=== PATIENT | male | born 1970 | race Two or more races ===

== ENCOUNTER 2018-03-24 12:02 | Emergency (ER) | payer SELFPAY ==
[~2018-03-24] VITALS: Ht 167.6 cm; Wt 68.0 kg
[2018-03-24 12:03] VITALS: BP 142/92
[2018-03-24] MEDS ORDERED: Lansoprazole 15mg cap ORAL SCH (12:30)
--- NOTE | 2018-03-24 12:33 | Emergency Room Report ---
History of Present Illness General Chief Complaint: Alcohol Intoxication Source: Patient Present Illness HPI 48-year-old male presents to the emergency department having no medical complaints at this time. Patient denies pain. Patient was brought to the emergency department by EMS. According to EMS bystanders called 911. Patient denies trauma or fall. He reports drinking alcohol this morning he states he has a problem. Patient denies nausea, vomiting, abdominal pain or tenderness. Patient denies neck pain. He denies open wounds or bleeding Denies CP, Palpitations, LOC, AMS, dizziness, Changes in Vision, Sensation, paresthesias, or a sudden severe headache. Allergies: Coded Allergies: No Known Allergies (Unverified , 03/24/18) Patient History Past Medical History: see triage record Past Surgical History: none Pertinent Family History: none Social History: Reports: alcohol use Reviewed Nursing Documentation: PMH: Agreed; PSxH: Agreed Nursing Documentation-PMH Past Medical History: No Stated History Review of Systems All Other Systems: negative except mentioned in HPI Physical Exam Vital Signs Date Time Temp Pulse Resp B/P (MAP) Pulse Ox O2 Delivery O2 Flow Rate FiO2 03/24/18 11:57 98.0 100 18 142/92 95 Room Air 98.1 Sp02 EP Interpretation: reviewed, normal General Appearance: no apparent distress, alert, GCS 15, non-toxic, other - Disheveled Head: normocephalic, atraumatic Eyes: bilateral eye normal inspection, bilateral eye PERRL, bilateral eye EOMI ENT: hearing grossly normal, normal voice Neck: full range of motion, no bony tend Respiratory: chest non-tender, lungs clear, normal breath sounds, speaking full sentences Cardiovascular #1: regular rate, rhythm Gastrointestinal: normal bowel sounds, non tender, soft, non-distended, no guarding Musculoskeletal: back normal, gait/station normal, normal range of motion, non- tender Neurologic: alert, oriented x3, responsive, motor strength/tone normal, sensory intact, speech normal - mild slurr, grossly normal Psychiatric: judgement/insight normal, mood/affect normal Skin: normal color, no rash, warm/dry, well hydrated, other - no open wounds, no abrasions Lymphatic: no adenopathy Medical Decision Making PA Attestation Dr. Fried is my supervising Physician whom patient management has been discussed with. Diagnostic Impression: Primary Impression: Acute alcoholic intoxication Qualified Codes: F10.929 - Alcohol use, unspecified with intoxication, unspecified ER Course Pt. presents to the ED intoxicated with alcohol, pt. is NAD, pt. is alert, no obvious signs of trauma. after a few hours pt. c/o stomach ache Ddx considered but are not limited to ETOH, Trauma, Syncope, dementia, OD Pt. Well known to the ED, this is not his correct name. I attended to him within the last week. Vital signs: are WNL, pt. is afebrile H&PE are most consistent with ETOH abuse. ORDERS: none required at this time ED INTERVENTIONS: -GI meds PO -Observance while he detoxifies. -Pt. was allowed to sleep/rest. - PT. became awake and alert x 3 He states he would like to leave. pt. is ambulatory, keeping food down. DISCHARGE: At this time pt. is stable for d/c to home. Will provide printed patient care instructions, and any necessary prescriptions. Care plan and follow up instructions have been discussed with the patient prior to discharge. Last Vital Signs Date Time Temp Pulse Resp B/P (MAP) Pulse Ox O2 Delivery O2 Flow Rate FiO2 03/24/18 11:57 98.0 100 18 142/92 95 Room Air 98.1 Disposition: HOME, SELF-CARE Condition: Stable Patient Instructions: Alcohol Intoxication, [id number] Additional Instructions: Take medications as directed. Stop Drinking ALCOHOL Follow up with a Primary Care Provider in 3-5 days, even if your symptoms have resolved. --Please review list of primary care clinics, if you do not already have a primary care provider Return sooner to ED if new symptoms occur, or current symptoms become worse. - Please note that this Emergency Department Report was dictated using [employer] Sol[employer]lass[employer] engraver technology software, occasionally this can lead to erroneous entry secondary to interpretation by the dictation equipment. Jaylene Schwartz March 24, 2018 12:33
[2018-03-24 15:05] VITALS: BP 134/84
[2018-03-24 15:50] VITALS: BP 134/84
== END 2018-03-24 15:54 | disposition home or self-care (01) ==
LOC: EDBD 12:02 → EMR 12:42
DX: F10.129 Alcohol abuse with intoxication, unspecified (principal)
CPT/HCPCS: 99283

== ENCOUNTER 2018-04-07 13:55 | Emergency (ER) | payer SELFPAY ==
[~2018-04-07] VITALS: Ht 167.6 cm; Wt 77.1 kg
--- NOTE | 2018-04-07 14:13 | Emergency Room Report ---
History of Present Illness General Chief Complaint: Alcohol Intoxication Source: EMS Present Illness HPI 48-year-old male presents emergency department brought by ambulance after bystander called 911. Patient is alert he is not oriented at this time. Patient reports he drank 2 x 40 ounces of beer today. He reports abdominal pain , and left-sided flank pain. Denies dysuria, hematuria, nausea, vomiting, fevers or chills. He denies trauma or fall. History of present illness and ROS is limited due to short attention span of patient as well as patient being clinically inebriated. Allergies: Coded Allergies: No Known Allergies (Unverified , 03/24/18) Patient History Past Medical History: see triage record Past Surgical History: none Pertinent Family History: none Social History: Reports: alcohol use Reviewed Nursing Documentation: PMH: Agreed; PSxH: Agreed Nursing Documentation-PMH Past Medical History: No History, Except For Hx Hypertension: Yes History Of Psychiatric Problem: Yes - ETOH ABUSE Review of Systems All Other Systems: limited - inebriated Physical Exam Vital Signs Date Time Temp Pulse Resp B/P (MAP) Pulse Ox O2 Delivery O2 Flow Rate FiO2 04/07/18 13:49 98.4 104 20 121/64 99 Room Air 98.4 Sp02 EP Interpretation: reviewed, normal General Appearance: no apparent distress, alert, GCS 15, non-toxic Head: normocephalic, atraumatic Eyes: bilateral eye normal inspection, bilateral eye PERRL ENT: hearing grossly normal, normal voice Neck: full range of motion Respiratory: lungs clear, normal breath sounds, no wheezing, speaking full sentences Cardiovascular #1: regular rate, rhythm Gastrointestinal: normal bowel sounds, soft, no peritonitis, non-distended, tenderness - left flank ttp Rectal: deferred Genitourinary: normal inspection, no CVA tenderness Musculoskeletal: back normal, gait/station normal, normal range of motion, non- tender Neurologic: alert, oriented x3, responsive, motor strength/tone normal, sensory intact, speech normal - somewhat slurred secondary to intoxication, grossly normal Psychiatric: judgement/insight normal Skin: normal color, no rash, warm/dry, well hydrated Medical Decision Making PA Attestation Dr. pinon is my supervising Physician whom patient management has been discussed with. Diagnostic Impression: Primary Impression: Acute alcoholic intoxication Qualified Codes: F10.929 - Alcohol use, unspecified with intoxication, unspecified Additional Impressions: Kidney stone Hydronephrosis Qualified Codes: N13.30 - Unspecified hydronephrosis ER Course 48-year-old male presents emergency department brought by ambulance after bystander called 911. Patient is alert he is not oriented at this time. Patient reports he drank 2 x 40 ounces of beer today. He reports abdominal pain , and left-sided flank pain. Denies dysuria, hematuria, nausea, vomiting, fevers or chills. He denies trauma or fall. History of present illness and ROS is limited due to short attention span of patient as well as patient being clinically inebriated. pt. is NAD, pt. is alert, no obvious signs of trauma, able to ambulate to onto ED gurney. Ddx considered but are not limited to ETOH, Trauma, Syncope, dementia, OD Vital signs: are WNL, pt. is afebrile H&PE are most consistent with ETOH abuse. ORDERS: -CBC Unremarkable -CMP: Cl108 other russ unremarkable mild AST elevation -ETOH serum: 475 -UA: positive for RBC's and occult blood - CT Abdomen and Pelvis with contrast. ED INTERVENTIONS: Observance while he detoxifies. Pt. was allowed to sleep/ rest. PT. became awake and alert x 3 requests to leave. d/w pt. he needs to follow up with urology. Had bone density technicianadam Serna translate this important information in Jamaican to the Pt. DISCHARGE: At this time pt. is stable for d/c to home. Will provide printed patient care instructions, and any necessary prescriptions. Care plan and follow up instructions have been discussed with the patient prior to discharge. Labs Test 04/07/18 14:25 04/07/18 14:30 White Blood Count 6.7 K/UL (4.8-10.8) Red Blood Count 4.83 M/UL (4.70-6.10) Hemoglobin 15.5 G/DL (14.2-18.0) Hematocrit 44.3 % (42.0-52.0) Mean Corpuscular Volume 92 FL (80-99) Mean Corpuscular Hemoglobin 32.2 PG (27.0-31.0) Mean Corpuscular Hemoglobin Concent 35.0 G/DL (32.0-36.0) Red Cell Distribution Width 11.5 % (11.6-14.8) Platelet Count 254 K/UL (150-450) Mean Platelet Volume 6.4 FL (6.5-10.1) Neutrophils (%) (Auto) 49.6 % (45.0-75.0) Lymphocytes (%) (Auto) 39.0 % (20.0-45.0) Monocytes (%) (Auto) 7.6 % (1.0-10.0) Eosinophils (%) (Auto) 1.9 % (0.0-3.0) Basophils (%) (Auto) 1.9 % (0.0-2.0) Sodium Level 144 MMOL/L (136-145) Potassium Level 3.5 MMOL/L (3.5-5.1) Chloride Level 108 MMOL/L (98-107) Carbon Dioxide Level 23 MMOL/L (21-32) Anion Gap 13 mmol/L (5-15) Blood Urea Nitrogen 12 mg/dL (7-18) Creatinine 0.8 MG/DL (0.55-1.30) Estimat Glomerular Filtration Rate > 60 mL/min (>60) Glucose Level 109 MG/DL (74-106) Calcium Level 8.2 MG/DL (8.5-10.1) Total Bilirubin 0.2 MG/DL (0.2-1.0) Aspartate Amino Transf (AST/SGOT) 48 U/L (15-37) Alanine Aminotransferase (ALT/SGPT) 62 U/L (12-78) Alkaline Phosphatase 77 U/L (46-116) Total Protein 7.9 G/DL (6.4-8.2) Albumin 4.0 G/DL (3.4-5.0) Globulin 3.9 g/dL Albumin/Globulin Ratio 1.0 (1.0-2.7) Serum Alcohol 475 mg/dL Urine Color Pale yellow Urine Appearance Slightly cloudy Urine pH 5 (4.5-8.0) Urine Specific [place] 1.010 (1.005-1.035) Urine Protein Negative (NEGATIVE) Urine Glucose (UA) Negative (NEGATIVE) Urine Ketones Negative (NEGATIVE) Urine Occult Blood 2+ (NEGATIVE) Urine Nitrite Negative (NEGATIVE) Urine Bilirubin Negative (NEGATIVE) Urine Urobilinogen Normal MG/DL (0.0-1.0) Urine Leukocyte Esterase Negative (NEGATIVE) Urine RBC 2-4 /HPF (0 - 0) Urine WBC 0-2 /HPF (0 - 0) Urine Squamous Epithelial Cells Few /LPF (NONE/OCC) Urine Bacteria Few /HPF (NONE) CT/MRI/US Diagnostic Results CT/MRI/US Diagnostic Results : Imaging Test Ordered: CT Abdomen and Pelvis With IV contrast Impression "Left hydronephrosis with abrupt transition at the left UPJ. This is not associated with an obstructing stone. Not certain if this is functionally obstructive or whether the morphology is chronic and long-standing or congenital. Consider nonemergent follow-up nuclear medicine renal scan to assess for some degree of functional obstruction, which if present is mild. Nonobstructive stone in the lower pole calyx of the left kidney." Per official radiology report- Please see report for specific details. Last Vital Signs Date Time Temp Pulse Resp B/P (MAP) Pulse Ox O2 Delivery O2 Flow Rate FiO2 04/07/18 13:49 98.4 104 20 121/64 99 Room Air 98.4 Status: unchanged Disposition: HOME, SELF-CARE Condition: Stable Referrals: NOT CHOSEN IPA/MD,REFERRING (PCP) Patient Instructions: Alcohol Abuse and Nutrition Additional Instructions: Take medications as directed. Follow up with a UROLOGY in 3-5 days, even if your symptoms have resolved. * * --Please review list of primary care clinics, if you do not already have a primary care provider Return sooner to ED if new symptoms occur, or current symptoms become worse. - Please note that this Emergency Department Report was dictated using [employer] Data[employer] merchandiser technology software, occasionally this can lead to erroneous entry secondary to interpretation by the dictation equipment. Jaylene Schwartz Apr 07, 2018 14:13
[2018-04-07] MEDS ORDERED: Isovue-300 100ml vial INJ PRN (14:30)
[2018-04-07 14:50] LABS: BASOPHILS % (AUTO) 1.9 % (0.0-2.0); EOSINOPHILS % (AUTO) 1.9 % (0.0-3.0); HEMATOCRIT 44.3 % (42.0-52.0); HEMOGLOBIN 15.5 G/DL (14.2-18.0); MEAN CORPUSCULAR VOLUME 92 FL (80-99); MONOCYTES % (AUTO) 7.6 % (1.0-10.0); NEUTROPHILS % (AUTO) 49.6 % (45.0-75.0); PLATELET COUNT 254 K/UL (150-450); RED BLOOD COUNT 4.83 M/UL (4.70-6.10); RED CELL DISTRIBUTION WIDTH 11.5 % (11.6-14.8); WHITE BLOOD COUNT 6.7 K/UL (4.8-10.8)
[2018-04-07 14:54] LABS: BILIRUBIN, URINE NEGATIVE (NEGATIVE); COLOR,URINE PALE YELLOW; GLUCOSE, URINE (UA) NEGATIVE (NEGATIVE); KETONES,URINE NEGATIVE (NEGATIVE); LEUKOCYTE ESTERASE ,URINE NEGATIVE (NEGATIVE); NITRITE,URINE NEGATIVE (NEGATIVE); PH,URINE 5 (4.5-8.0); PROTEIN,URINE NEGATIVE (NEGATIVE); UROBILINOGEN,URINE NORMAL MG/DL (0.0-1.0)
[2018-04-07 14:56] LABS: APPEARANCE,URINE SLIGHTLY CLOUDY
[2018-04-07 14:59] VITALS: BP 101/67
[2018-04-07 15:04] LABS: ANION GAP 13 mmol/L (5-15); BLOOD UREA NITROGEN 12 mg/dL (7-18); CALCIUM 8.2 MG/DL (8.5-10.1); CARBON DIOXIDE 23 MMOL/L (21-32); CHLORIDE 108 MMOL/L (98-107); CREATININE 0.8 MG/DL (0.55-1.30); POTASSIUM 3.5 MMOL/L (3.5-5.1); SODIUM 144 MMOL/L (136-145)
[2018-04-07 15:13] LABS: ALANINE AMINOTRANSFERASE 62 U/L (12-78); ALKALINE PHOSPHATASE 77 U/L (46-116); ASPARTATE AMINO TRANSFERASE 48 U/L (15-37); BILIRUBIN,TOTAL 0.2 MG/DL (0.2-1.0)
--- NOTE | 2018-04-07 17:13 | Diagnostic Imaging Report ---
Indication: Abdominal pain Technique: Continuous helical transaxial imaging of the abdomen and pelvis was obtained from the lung bases to the pubic symphysis during intravenous contrast administration. Coronal 2-D reformats were also obtained. Study obtained in a Siemens sensation [address] Automatic Exposure Control was utilized. Total Dose length Product (DLP): 548.[address] Dose Index Volume (CTDIvol): 10.82 mGy Comparison: None Findings: The lung bases are clear. The liver is hypodense consistent with fatty infiltration. The left renal pelvis is dilated. However there is transition to normal caliber ureter at the UPJ. The ureters normal beyond this. There is no differential enhancement of the kidneys with symmetric concentration of contrast material within both kidneys. There are no associated obstructive signs such as perinephric stranding. Therefore would doubt an acute obstruction. Follow-up nuclear medicine renal scan may be helpful to assess for any functional obstruction within the left kidney. If there is functional obstruction within the left kidney, suspect this would be mild degree as the kidneys enhance symmetrically on the current study. There is a nonobstructive stone in the lower pole of the left kidney. Gallbladder is unremarkable. No evidence of bowel obstruction, free fluid or free air. Appendix is normal. IMPRESSION: Left hydronephrosis with abrupt transition at the left UPJ. This is not associated with an obstructing stone. Not certain if this is functionally obstructive or whether the morphology is chronic and long-standing or congenital. Consider nonemergent follow-up nuclear medicine renal scan to assess for some degree of functional obstruction, which if present is mild. Nonobstructive stone in the lower pole calyx of the left kidney. Fatty liver The CT scanner at [facility] is accredited by the [employer] and the scans are performed using dose optimization techniques as appropriate to a performed exam including Automatic Exposure control.
[2018-04-07 17:15] VITALS: BP 117/68
== END 2018-04-07 17:15 | disposition home or self-care (01) ==
LOC: EDBD 13:55 → EMR 14:00
DX: F10.129 Alcohol abuse with intoxication, unspecified (principal); N13.2 Hydronephrosis with renal and ureteral calculous obstruction; K76.0 Fatty (change of) liver, not elsewhere classified
CPT/HCPCS: 36415; 74177; 80053; 81003; 85025; 99284; G0480; Q9967; 80329

== ENCOUNTER 2019-06-12 22:09 | Emergency (ER) | payer SELFPAY ==
[~2019-06-12] VITALS: Ht 170.2 cm; Wt 63.5 kg
--- NOTE | 2019-06-12 22:14 | Emergency Room Report ---
History of Present Illness General Chief Complaint: Seizure Source: Patient Present Illness HPI This is a 49-year-old male with a history of seizure. He is noncompliant with medication. Also history of alcohol abuse. He had a witnessed tonic-clonic seizure activity. No trauma. He was initially postictal but back to baseline now. No incontinence of bowel or urine. Allergies: Coded Allergies: No Known Allergies (Unverified , 03/24/18) Patient History Past Medical History: see triage record, old chart reviewed, seizures Past Surgical History: other Pertinent Family History: none Social History: Reports: alcohol use Immunizations: other Reviewed Nursing Documentation: PMH: Agreed; PSxH: Agreed Nursing Documentation-PMH Past Medical History: No History, Except For Hx Hypertension: Yes Hx Seizures: Yes Review of Systems Eye: Denies: eye pain, blurred vision ENT: Denies: ear pain, nose congestion, throat swelling Respiratory: Denies: cough, shortness of breath Cardiovascular: Denies: chest pain, palpitations Gastrointestinal: Denies: abdominal pain, diarrhea, nausea, vomiting Musculoskeletal: Denies: back pain, joint pain Skin: Denies: rash Neurological: Denies: headache, numbness Endocrine: Denies: increased thirst, increased urine Hematologic/Lymphatic: Denies: easy bruising All Other Systems: negative except mentioned in HPI Physical Exam Vital Signs Date Time Temp Pulse Resp B/P (MAP) Pulse Ox O2 Delivery O2 Flow Rate FiO2 06/12/19 22:05 98.2 90 16 142/70 (94) 98 Room Air Vitals normal Sp02 EP Interpretation: reviewed, normal General Appearance: well appearing, no apparent distress, alert, other - Disheveled Head: normocephalic, atraumatic Eyes: bilateral eye PERRL, bilateral eye EOMI ENT: hearing grossly normal, normal pharynx Neck: full range of motion, supple, no meningismus Respiratory: chest non-tender, lungs clear, normal breath sounds Cardiovascular #1: regular rate, rhythm, no murmur Gastrointestinal: normal bowel sounds, non tender, no mass, no organomegaly, no bruit, non-distended Musculoskeletal: back normal, gait/station normal, normal range of motion Psychiatric: mood/affect normal Medical Decision Making Diagnostic Impression: Primary Impression: Acute alcoholic intoxication Qualified Codes: F10.920 - Alcohol use, unspecified with intoxication, uncomplicated Additional Impression: Epileptic seizure, generalized ER Course Patient presents with a breakthrough seizure secondary to noncompliance with his medication. He does not even know the name of his medication. He is intoxicated. Dose of Keppra given here. There is no trauma to warrant x-ray or CT scan. He does not drive so I see no need for DMV report. Last Vital Signs Date Time Temp Pulse Resp B/P (MAP) Pulse Ox O2 Delivery O2 Flow Rate FiO2 06/12/19 22:05 98.2 90 16 142/70 (94) 98 Room Air Status: improved Disposition: HOME, SELF-CARE Condition: Stable Scripts Levetiracetam (KEPPRA) 500 Mg Tablet 500 MG ORAL EVERY 12 HOURS, #60 TAB 0 Refills Prov: Benjamin Gallo MD 06/12/19 Patient Instructions: Seizure, Adult Additional Instructions: Follow up with your doctor in 7 days. Abstain from alcohol. Return if worse. Take your seizure medication. Benjamin Gallo MD Jun 12, 2019 22:14
[2019-06-12] MEDS ORDERED: levETIRAcetam 1,000mg/NS100ml 100 ML IVPB ONE (22:15)
[2019-06-12] MEDS ORDERED: KEPPRA500 M4 ORAL (22:16)
[2019-06-12 22:20] VITALS: BP 142/70
--- NOTE | 2019-06-12 22:20 | NUR ---
ER Nurse Note: Pt BIBA RA [address]/o post ictal seizure. Seizure was unwitnessed. Pt stated he did not take his meds for a few days and drank alcohol. Hx of seizures. Pt a&ox4, VSS, no signs of seizure on arrival. Side rails padded, patent airway. Will continue to monitor.
--- NOTE | 2019-06-13 01:00 | NUR ---
ER Nurse Note: Pt asleep, no signs of distress. All meds given. Pt calm, cooperative. Side rails padded. Will continue to montior.
[2019-06-13 01:08] VITALS: BP 134/74
[2019-06-13 04:41] VITALS: BP 128/76
--- NOTE | 2019-06-13 04:42 | NUR ---
ER Nurse Note: Pt asleep, no signs of distress, no epi of seizure. All orders completed. Bed in lowest position, will continue to montior.
[2019-06-13 06:11] VITALS: BP 132/80
[2019-06-13 06:20] VITALS: BP 132/80
--- NOTE | 2019-06-13 06:20 | NUR ---
ER Nurse Note: Pt seen, treated, medically cleared for discharge by ERMD. Discharge instuctions and prescriptions given with repeat verbalization by pt. Emphasized to take whole course of medication. Explained each medication. All orders completed per ERMD orders; ERMD signed homeless discharge form. Pt a&ox4, VSS, no signs of distress. ID band removed. IV removed; site clean and bandaged. All questions answered per pt's questions. Pt left with all belongings, left with own transportation. Provided pt with food, beverage. Pt left with appropriate clothing, resources.
== END 2019-06-13 06:20 | disposition home or self-care (01) ==
LOC: EDBD 22:09 → EMR 23:30
DX: G40.909 Epilepsy, unspecified, not intractable, without status epilepticus (principal); F10.920 Alcohol use, unspecified with intoxication, uncomplicated; I10 Essential (primary) hypertension
CPT/HCPCS: 96374; 99283; J1953